=== PATIENT | male | born 1950 | race Asian ===

== ENCOUNTER 2016-08-04 10:32 | Emergency (ER) | payer OTHER ==
[~2016-08-04] VITALS: Ht 175.3 cm; Wt 107.5 kg
[2016-08-04 12:25] VITALS: BP 148/88; TEMP 97.5
== END 2016-08-04 12:25 | disposition home or self-care (01) ==
LOC: ED 10:32
DX: M25.562 Pain in left knee (principal); M25.561 Pain in right knee
CPT/HCPCS: 99282

== ENCOUNTER 2016-12-06 11:33 | Outpatient (CLI) | payer OTHER ==
[2016-12-06 12:32] LABS: PLATELET COUNT 309 K/uL (142-355)
[2016-12-06 13:06] LABS: POTASSIUM 4.1 mmol/L (3.6-5.2); SODIUM 135 mmol/L (136-145)
== END 2016-12-06 19:04 | disposition home or self-care (01) ==
LOC: LABW 11:33
PROVIDERS: Family Medicine
DX: M54.5 Low back pain (principal); K21.9 Gastro-esophageal reflux disease without esophagitis; I10 Essential (primary) hypertension; N40.0 Benign prostatic hyperplasia without lower urinary tract symptoms; E55.9 Vitamin D deficiency, unspecified
CPT/HCPCS: 36415; 80053; 80061; 81000; 82043; 82306; 82570; 83735; 84153; 84439; 84443; 84550; 85027

== ENCOUNTER 2017-05-23 11:39 | Outpatient (CLI) | payer OTHER ==
[2017-05-23 12:11] LABS: PLATELET COUNT 278 K/uL (142-355)
== END 2017-05-23 21:32 | disposition home or self-care (01) ==
LOC: LABW 11:39
PROVIDERS: Family Medicine
DX: R31.29 Other microscopic hematuria (principal); N41.0 Acute prostatitis; I10 Essential (primary) hypertension; N28.89 Other specified disorders of kidney and ureter; M54.5 Low back pain; K21.9 Gastro-esophageal reflux disease without esophagitis; R73.09 Other abnormal glucose
CPT/HCPCS: 36415; 80053; 80061; 81000; 82043; 82306; 82570; 82607; 82746; 83036; 83735; 84153; 84439; 84443; 84550; 85027

== ENCOUNTER 2017-06-01 15:51 | Outpatient (CLI) | payer OTHER | END 2017-06-01 19:36 | disposition home or self-care (01) | LOC: LABW 15:51 | DX: N39.0 Urinary tract infection, site not specified (principal) | CPT/HCPCS: 81000; 87088 ==

== ENCOUNTER 2017-11-11 19:56 | Emergency (ER) | payer OTHER ==
[~2017-11-11] VITALS: Ht 175.3 cm; Wt 108.4 kg
[2017-11-11 21:29] VITALS: BP 158/90; TEMP 98.6
== END 2017-11-11 21:29 | disposition home or self-care (01) ==
LOC: ED 19:56
DX: L25.3 Unspecified contact dermatitis due to other chemical products (principal); T60.91XA Toxic effect of unspecified pesticide, accidental (unintentional), initial encounter; Y92.098 Other place in other non-institutional residence as the place of occurrence of the external cause
CPT/HCPCS: 96373; 99282; J2930

== ENCOUNTER 2017-11-27 14:42 | Emergency (ER) | payer OTHER ==
[~2017-11-27] VITALS: Ht 175.3 cm; Wt 108.4 kg
[2017-11-27 14:51] VITALS: TEMP 97.5
[2017-11-27 15:23] LABS: PLATELET COUNT 312 K/uL (142-355)
[2017-11-27 15:31] LABS: POTASSIUM 3.7 mmol/L (3.6-5.2)
[2017-11-27 16:30] VITALS: BP 118/78
== END 2017-11-27 16:45 | disposition home or self-care (01) ==
LOC: ED 14:42
PROVIDERS: Family Medicine
DX: K52.89 Other specified noninfective gastroenteritis and colitis (principal); K58.8 Other irritable bowel syndrome
CPT/HCPCS: 74022; 80053; 81000; 85027; 96374; 99284; J2405

== ENCOUNTER 2018-03-20 13:58 | Emergency (ER) | payer OTHER ==
[~2018-03-20] VITALS: Ht 175.3 cm; Wt 108.4 kg
[2018-03-20 14:02] VITALS: TEMP 97.7
[2018-03-20 14:59] LABS: PLATELET COUNT 276 K/uL (142-355)
[2018-03-20 15:07] LABS: POTASSIUM 3.7 mmol/L (3.6-5.2)
[2018-03-20 16:00] VITALS: BP 173/83
== END 2018-03-20 16:02 | disposition home or self-care (01) ==
LOC: ED 13:58
DX: J06.9 Acute upper respiratory infection, unspecified (principal)
CPT/HCPCS: 36415; 80053; 81000; 85027; 87502; 87651; 96374; 99284; J1885

== ENCOUNTER 2018-07-25 14:59 | Emergency (ER) | payer OTHER ==
[~2018-07-25] VITALS: Ht 175.3 cm; Wt 108.4 kg
[2018-07-25 16:30] LABS: PLATELET COUNT 263 K/uL (142-355)
[2018-07-25 16:40] LABS: POTASSIUM 3.7 mmol/L (3.6-5.2)
[2018-07-25 17:48] VITALS: BP 137/88; TEMP 98
== END 2018-07-25 17:48 | disposition home or self-care (01) ==
LOC: ED 14:59
PROVIDERS: Family Medicine
DX: K29.60 Other gastritis without bleeding (principal); K21.9 Gastro-esophageal reflux disease without esophagitis
CPT/HCPCS: 36415; 74022; 80053; 81000; 85027; 99283

== ENCOUNTER 2019-07-09 14:19 | Outpatient (CLI) | payer OTHER ==
[2019-07-09 14:46] LABS: PLATELET COUNT 245 K/uL (142-355)
== END 2019-07-09 19:39 | disposition home or self-care (01) ==
LOC: LABW 14:19
PROVIDERS: Family Medicine
DX: E11.9 Type 2 diabetes mellitus without complications (principal); D64.89 Other specified anemias; I10 Essential (primary) hypertension; E78.00 Pure hypercholesterolemia, unspecified; K21.9 Gastro-esophageal reflux disease without esophagitis; M25.519 Pain in unspecified shoulder; N40.0 Benign prostatic hyperplasia without lower urinary tract symptoms
CPT/HCPCS: 36415; 80053; 80061; 81000; 82306; 83036; 83735; 84153; 84439; 84443; 84550; 85027

== ENCOUNTER 2019-07-24 11:16 | Emergency (ER) | payer OTHER ==
[~2019-07-24] VITALS: Ht 175.3 cm; Wt 99.3 kg
[2019-07-24] MEDS ORDERED: CETIRIZINE5 MG PO (12:02)
[2019-07-24] MEDS ORDERED: TAMSULOSIN0.4 MG PO (12:02)
[2019-07-24] MEDS ORDERED: OMEPRAZOLE20 M1 (12:03)
[2019-07-24] MEDS ORDERED: METOPROLOL25 M1 PO (12:03)
[2019-07-24 12:16] LABS: PLATELET COUNT 227 K/uL (142-355)
[2019-07-24 20:00] VITALS: BP 164/90; TEMP 98.6
== END 2019-07-24 20:00 | disposition other institution (70) ==
LOC: ED 11:25
PROVIDERS: Family Medicine
DX: F25.8 Other schizoaffective disorders (principal); F22 Delusional disorders; Z04.6 Encounter for general psychiatric examination, requested by authority; Z79.899 Other long term (current) drug therapy
CPT/HCPCS: 80053; 80307; 80320; 80329; 81000; 85027; 93005; 99285

== ENCOUNTER 2020-03-11 19:27 | Emergency (ER) | payer OTHER ==
[~2020-03-11] VITALS: Ht 175.3 cm; Wt 113.4 kg
[~2020-03-11 19:27] MED LIST: CETIRIZINE5 MG PO; METOPROLOL25 M1 PO; OMEPRAZOLE20 M1; TAMSULOSIN0.4 MG PO
[2020-03-11 20:22] LABS: PLATELET COUNT 225 K/uL (142-355)
[2020-03-11 21:00] LABS: POTASSIUM 4.1 mmol/L (3.6-5.2)
[2020-03-11 23:20] VITALS: BP 166/96; TEMP 98.8
== END 2020-03-11 23:20 | disposition home or self-care (01) ==
LOC: ED 19:34
PROVIDERS: Family Medicine
DX: R11.0 Nausea (principal); Z20.828 Contact with and (suspected) exposure to other viral communicable diseases
CPT/HCPCS: 36415; 80053; 81000; 85007; 85027; 87635; 96360; 96375; 96376; 99284; J2405; J3490; U0003